=== PATIENT | female | born 1950 | race Caucasian/White ===

== ENCOUNTER 2022-02-04 14:34 | Outpatient (CLI) | payer MEDICARE | END 2022-02-04 14:35 | disposition home or self-care (01) | LOC: CSHMAMMO 14:34 | PROVIDERS: ATTEND Family Medicine | DX: Z12.31 Encounter for screening mammogram for malignant neoplasm of breast (principal); Z98.82 Breast implant status | CPT/HCPCS: 77063; 77067 ==

== ENCOUNTER 2023-02-08 09:43 | Outpatient (CLI) | payer MEDICARE | END 2023-02-08 09:44 | disposition home or self-care (01) | LOC: CSHMAMMO 09:43 | PROVIDERS: ATTEND Family Medicine | DX: Z12.31 Encounter for screening mammogram for malignant neoplasm of breast (principal); Z98.82 Breast implant status | CPT/HCPCS: 77063; 77067 ==

== ENCOUNTER 2024-02-10 08:59 | Outpatient (CLI) | payer MEDICARE | END 2024-02-10 09:00 | disposition home or self-care (01) | LOC: CSHMAMMO 08:59 | PROVIDERS: ATTEND Family Medicine | DX: Z12.31 Encounter for screening mammogram for malignant neoplasm of breast (principal) | CPT/HCPCS: 77063; 77067 ==